=== PATIENT | female | born 2000 | race Caucasian/White ===

== ENCOUNTER → 2021-03-18 | Emergency (ER) | payer MEDICAID ==
[~2021-03-18] VITALS: Ht 162.5 cm; Wt 59.0 kg
[~2021-03-18] MED LIST: PENICILLIN VK500 MG PO
== END ==
LOC: ED 18:43
DX: K02.9 Dental caries, unspecified (principal); K04.7 Periapical abscess without sinus; K08.89 Other specified disorders of teeth and supporting structures

== ENCOUNTER 2021-04-03 21:44 | Emergency (ER) | payer MEDICAID ==
[~2021-04-03] VITALS: Ht 162.5 cm; Wt 59.0 kg
[2021-04-03 22:37] LABS: BASO % 0.3 % (0.0-1.0); EOS % 0.3 % (1.0-4.0); HEMATOCRIT 36.7 % (37.0-47.0); LYMPH # 0.7 10*3/uL (1.3-4.4); LYMPH % 10.6 % (27.0-41.0); MEAN CELL VOLUME 76.1 fl (81.0-99.0); MEAN CORPUSCULAR HGB 23.2 pg (27.0-31.0); MEAN CORPUSCULAR HGB CONC 30.5 g/dl (33.0-37.0); MONO # 0.2 10*3/uL (0.1-1.0); MONO % 3.9 % (3.0-9.0); NEUT # 5.2 10*3/uL (2.3-7.9); NEUT % 84.7 % (47.0-73.0); PLATELET COUNT AUTOMATED 307 10*3/uL (130-400); RED BLOOD COUNT 4.82 10*6/uL (4.10-5.10); RED CELL DISTRI WIDTH 15.1 % (0-14.5); WHITE BLOOD COUNT 6.2 10*3/uL (4.8-10.8)
[2021-04-03 22:46] LABS: BILIRUBIN Negative (Negative); BLOOD Negative (Negative); CLARITY Clear (Clear); COLOR Yellow (Yellow); GLUCOSE Negative (Negative); KETONE Trace (Negative); LEUKO ESTERASE Negative (Negative); NITRITE Negative (Negative); PH 5.5 (4.5-8.0); SPECIFIC GRAVITY 1.025 (1.001-1.030)
[2021-04-03 22:55] LABS: ALBUMIN 3.3 gm/dl (3.1-4.5); ALKALINE PHOSPHATASE 90 U/L (45-117); BUN 10 mg/dl (7-24); CHLORIDE 107 mmol/L (98-107); CREATININE 0.73 mg/dL (0.55-1.02); LIPASE 132 U/L (73-393); POTASSIUM 3.5 mmol/L (3.5-5.1); SGOT/AST 16 IU/L (3-35); SGPT/ALT 15 U/L (12-78); SODIUM 137 mmol/L (136-145); TOTAL PROTEIN 7.9 gm/dL (6.4-8.2)
[2021-04-03 23:11] LABS: BACTERIA TRACE; RBC 0-2 rbc/hpf (0-2); WBC 0-2 wbc/hpf (0-5)
[2021-04-03] MEDS ORDERED: ZOFRAN4 MG SL (23:25)
== END 2021-04-03 23:45 | disposition home or self-care (01) ==
LOC: ED 21:44
PROVIDERS: Nurse Practitioner
DX: K81.9 Cholecystitis, unspecified (principal); R11.10 Vomiting, unspecified; E83.51 Hypocalcemia

== ENCOUNTER 2021-04-07 01:45 | Emergency (ER) | payer MEDICAID ==
[~2021-04-07] VITALS: Wt 63.5 kg
[~2021-04-07 01:45] MED LIST changes: +ZOFRAN4 MG SL
== END 2021-04-07 04:03 | disposition home or self-care (01) ==
LOC: ED 01:45
DX: S86.911A Strain of unspecified muscle(s) and tendon(s) at lower leg level, right leg, initial encounter (principal); X58.XXXA Exposure to other specified factors, initial encounter; Y93.89 Activity, other specified; Y92.89 Other specified places as the place of occurrence of the external cause; Y99.8 Other external cause status

== ENCOUNTER 2021-10-01 18:23 | Emergency (ER) | payer MEDICAID ==
[~2021-10-01] VITALS: Wt 69.9 kg
[2021-10-01 19:22] LABS: BILIRUBIN Negative (Negative); BLOOD Negative (Negative); CLARITY Cloudy (Clear); COLOR Yellow (Yellow); GLUCOSE Negative (Negative); KETONE Negative (Negative); LEUKO ESTERASE 1+ (Negative); NITRITE Negative (Negative); SPECIFIC GRAVITY <= 1.005 (1.001-1.030); UROBILINOGEN 0.2 E.U./dl (0.0-1.0)
[2021-10-01 19:35] LABS: BACTERIA 2+
[2021-10-01] MEDS ORDERED: NAPROSYN500 MG PO (19:39)
== END 2021-10-01 19:42 | disposition home or self-care (01) ==
LOC: ED 18:23
PROVIDERS: Physician Assistant
DX: R07.81 Pleurodynia (principal)

== ENCOUNTER 2023-11-30 13:03 | Emergency (ER) | payer SELFPAY ==
[~2023-11-30] VITALS: Wt 68.0 kg
[~2023-11-30 13:03] MED LIST changes: +NAPROSYN500 MG PO
[2023-11-30 14:09] LABS: BASO % 0.5 % (0.0-1.0); EOS % 0.7 % (1.0-4.0); HEMATOCRIT 44.1 % (37.0-47.0); LYMPH # 1.3 10*3/uL (1.3-4.4); LYMPH % 30.2 % (27.0-41.0); MEAN CELL VOLUME 87.7 fl (81.0-99.0); MEAN CORPUSCULAR HGB 27.4 pg (27.0-31.0); MEAN CORPUSCULAR HGB CONC 31.3 g/dl (33.0-37.0); MEAN PLATELET VOLUME 9.8 fl (9.6-12.3); MONO # 0.5 10*3/uL (0.1-1.0); MONO % 12.3 % (3.0-9.0); NEUT # 2.4 10*3/uL (2.3-7.9); NEUT % 56.1 % (47.0-73.0); PLATELET COUNT AUTOMATED 260 10*3/uL (130-400); RED BLOOD COUNT 5.03 10*6/uL (4.10-5.10); RED CELL DISTRI WIDTH 14.6 % (0-14.5); WHITE BLOOD COUNT 4.3 10*3/uL (4.8-10.8)
[2023-11-30 14:11] LABS: BILIRUBIN Negative (Negative); BLOOD Negative (Negative); CLARITY Cloudy (Clear); COLOR Yellow (Yellow); GLUCOSE Negative (Negative); KETONE Negative (Negative); LEUKO ESTERASE 2+ (Negative); NITRITE Negative (Negative); PH 7.5 (4.5-8.0); SPECIFIC GRAVITY <= 1.005 (1.001-1.030); UROBILINOGEN 0.2 E.U./dl (0.0-1.0)
[2023-11-30 14:26] LABS: BACTERIA 1+; EPITHELIAL CELLS 16-20; RBC 0-2 rbc/hpf (0-2)
[2023-11-30 14:33] LABS: ALKALINE PHOSPHATASE 98 U/L (46-116); CHLORIDE 106 mmol/L (98-107); POTASSIUM 3.5 mmol/L (3.4-5.1); SGPT/ALT 9 U/L (5-49); TOTAL PROTEIN 7.5 gm/dL (6.0-8.0)
[2023-11-30 14:37] LABS: BUN < 5 mg/dl (9-23)
[2023-11-30] MEDS ORDERED: ONDANSETRON4 MG SL (15:36)
[2023-11-30] MEDS ORDERED: SEPTDS PO (15:36)
== END 2023-11-30 15:50 | disposition home or self-care (01) ==
LOC: ED 13:03
PROVIDERS: Physician Assistant Medical
DX: N39.0 Urinary tract infection, site not specified (principal); Z20.822 Contact with and (suspected) exposure to COVID-19; K52.9 Noninfective gastroenteritis and colitis, unspecified; R11.2 Nausea with vomiting, unspecified; F17.210 Nicotine dependence, cigarettes, uncomplicated

== ENCOUNTER 2024-01-21 11:29 | Emergency (ER) | payer SELFPAY ==
[~2024-01-21] VITALS: Ht 165.1 cm; Wt 68.0 kg
[~2024-01-21 11:29] MED LIST changes: +ONDANSETRON4 MG SL; +SEPTDS PO
[2024-01-21 12:04] LABS: BILIRUBIN Negative (Negative); BLOOD 3+ (Negative); CLARITY Turbid (Clear); COLOR Yellow (Yellow); GLUCOSE Negative (Negative); KETONE Negative (Negative); LEUKO ESTERASE 3+ (Negative); NITRITE Positive (Negative); UROBILINOGEN 0.2 E.U./dl (0.0-1.0)
[2024-01-21] MEDS ORDERED: AZITHROMYCIN 250 MG TAB PO ONE (12:05)
[2024-01-21 12:11] LABS: BASO # 0.1 10*3/uL (0.0-0.1); BASO % 0.6 % (0.0-1.0); EOS # 0.1 10*3/uL (0.0-0.4); HEMATOCRIT 41.3 % (37.0-47.0); LYMPH # 1.5 10*3/uL (1.3-4.4); LYMPH % 19.1 % (27.0-41.0); MEAN CELL VOLUME 90.2 fl (81.0-99.0); MEAN CORPUSCULAR HGB 29.5 pg (27.0-31.0); MEAN CORPUSCULAR HGB CONC 32.7 g/dl (33.0-37.0); MONO # 0.5 10*3/uL (0.1-1.0); MONO % 6.7 % (3.0-9.0); NEUT # 5.6 10*3/uL (2.3-7.9); NEUT % 72.3 % (47.0-73.0); PLATELET COUNT AUTOMATED 251 10*3/uL (130-400); RED BLOOD COUNT 4.58 10*6/uL (4.10-5.10); RED CELL DISTRI WIDTH 13.2 % (0-14.5); WHITE BLOOD COUNT 7.8 10*3/uL (4.8-10.8)
[2024-01-21 12:14] LABS: BACTERIA 4+; EPITHELIAL CELLS 21-30; RBC 41-50 rbc/hpf (0-2); WBC TNTC wbc/hpf (0-5)
[2024-01-21 12:32] LABS: ALKALINE PHOSPHATASE 86 U/L (46-116); CHLORIDE 105 mmol/L (98-107); SGPT/ALT 8 U/L (5-49); TOTAL PROTEIN 7.3 gm/dL (6.0-8.0)
[2024-01-21 12:35] LABS: BUN < 5 mg/dl (9-23)
[2024-01-21] MEDS ORDERED: Water, Sterile 10 ML VIAL ONE (12:40)
[2024-01-21] MEDS ORDERED: VIBRAMYCIN100 MG PO (13:22)
[2024-01-21] MEDS ORDERED: MIRALAX POWDER17 G1 PO (13:22)
== END 2024-01-21 13:29 | disposition home or self-care (01) ==
LOC: ED 11:29
PROVIDERS: Internal Medicine; Nurse Practitioner
DX: N39.0 Urinary tract infection, site not specified (principal); K59.00 Constipation, unspecified; N89.8 Other specified noninflammatory disorders of vagina

== ENCOUNTER 2024-02-15 21:09 | Emergency (ER) | payer SELFPAY ==
[~2024-02-15] VITALS: Ht 165.1 cm; Wt 68.0 kg
[~2024-02-15 21:09] MED LIST changes: +MIRALAX POWDER17 G1 PO; +VIBRAMYCIN100 MG PO
[2024-02-15 23:08] LABS: BASO # 0.1 10*3/uL (0.0-0.1); BASO % 0.8 % (0.0-1.0); EOS # 0.1 10*3/uL (0.0-0.4); EOS % 1.3 % (1.0-4.0); HEMATOCRIT 40.3 % (37.0-47.0); LYMPH # 2.3 10*3/uL (1.3-4.4); LYMPH % 38.9 % (27.0-41.0); MEAN CELL VOLUME 89.8 fl (81.0-99.0); MEAN CORPUSCULAR HGB 29.4 pg (27.0-31.0); MEAN CORPUSCULAR HGB CONC 32.8 g/dl (33.0-37.0); MEAN PLATELET VOLUME 10.1 fl (9.6-12.3); MONO # 0.4 10*3/uL (0.1-1.0); MONO % 6.7 % (3.0-9.0); NEUT # 3.1 10*3/uL (2.3-7.9); NEUT % 52.1 % (47.0-73.0); PLATELET COUNT AUTOMATED 267 10*3/uL (130-400); RED BLOOD COUNT 4.49 10*6/uL (4.10-5.10); RED CELL DISTRI WIDTH 12.8 % (0-14.5)
[2024-02-15 23:21] LABS: BILIRUBIN Negative (Negative); BLOOD 3+ (Negative); CLARITY Turbid (Clear); COLOR Orange (Yellow); GLUCOSE Negative (Negative); KETONE Negative (Negative); LEUKO ESTERASE 2+ (Negative); NITRITE Negative (Negative); PH 5.5 (4.5-8.0); SPECIFIC GRAVITY 1.015 (1.001-1.030); UROBILINOGEN 0.2 E.U./dl (0.0-1.0)
[2024-02-15 23:31] LABS: CHLORIDE 106 mmol/L (98-107); POTASSIUM 3.5 mmol/L (3.4-5.1)
[2024-02-15 23:43] LABS: EPITHELIAL CELLS 41-50
[2024-02-15 23:44] LABS: BUN < 5 mg/dl (9-23)
[2024-02-15 23:44] LABS: BACTERIA 1+; RBC 41-50 rbc/hpf (0-2); WBC 31-40 wbc/hpf (0-5)
== END 2024-02-16 00:55 | disposition home or self-care (01) ==
LOC: ED 21:09
PROVIDERS: Emergency Medicine; Nurse Practitioner
DX: O46.8X1 Other antepartum hemorrhage, first trimester (principal); Z3A.01 Less than 8 weeks gestation of pregnancy

== ENCOUNTER 2024-03-17 19:37 | Emergency (ER) | payer SELFPAY ==
[~2024-03-17] VITALS: Wt 68.0 kg
[2024-03-17 20:09] LABS: BASO # 0.1 10*3/uL (0.0-0.1); BASO % 0.8 % (0.0-1.0); EOS % 0.5 % (1.0-4.0); HEMATOCRIT 41.2 % (37.0-47.0); LYMPH # 0.4 10*3/uL (1.3-4.4); LYMPH % 7.3 % (27.0-41.0); MEAN CELL VOLUME 89.6 fl (81.0-99.0); MEAN CORPUSCULAR HGB 29.8 pg (27.0-31.0); MEAN CORPUSCULAR HGB CONC 33.3 g/dl (33.0-37.0); MEAN PLATELET VOLUME 9.9 fl (9.6-12.3); MONO # 0.3 10*3/uL (0.1-1.0); MONO % 5.1 % (3.0-9.0); NEUT # 5.2 10*3/uL (2.3-7.9); NEUT % 86.1 % (47.0-73.0); PLATELET COUNT AUTOMATED 242 10*3/uL (130-400); RED CELL DISTRI WIDTH 12.2 % (0-14.5); WHITE BLOOD COUNT 6.1 10*3/uL (4.8-10.8)
[2024-03-17 20:30] LABS: ALKALINE PHOSPHATASE 90 U/L (46-116); BUN 5 mg/dl (9-23); CHLORIDE 103 mmol/L (98-107); POTASSIUM 3.4 mmol/L (3.4-5.1); SGPT/ALT 9 U/L (5-49)
[2024-03-17 20:31] LABS: BETA-HCG, QUANT < 3.0 mIU/mL (3-10)
[2024-03-17 20:31] LABS: BILIRUBIN Negative (Negative); BLOOD Negative (Negative); CLARITY Clear (Clear); COLOR Yellow (Yellow); GLUCOSE Negative (Negative); KETONE Negative (Negative); LEUKO ESTERASE Trace (Negative); NITRITE Negative (Negative); SPECIFIC GRAVITY <= 1.005 (1.001-1.030); UROBILINOGEN 0.2 E.U./dl (0.0-1.0)
[2024-03-17 20:39] LABS: WBC 0-2 wbc/hpf (0-5); YEAST TRACE
[2024-03-17] MEDS ORDERED: Dexamethasone Sodium Phospha 20 MG/5 ML VIAL IM ONE (21:10)
[2024-03-17] MEDS ORDERED: Ketorolac Tromethamine 30 MG/ML VIAL IM ONE (21:10)
== END 2024-03-17 21:26 | disposition home or self-care (01) ==
LOC: ED 19:37
PROVIDERS: Internal Medicine; Internal Medicine Cardiovascular Disease
DX: B34.9 Viral infection, unspecified (principal); M54.50 Low back pain, unspecified; Z32.02 Encounter for pregnancy test, result negative

== ENCOUNTER 2024-06-19 10:38 | Emergency (ER) | payer OTHER ==
[~2024-06-19] VITALS: Ht 165.1 cm; Wt 68.0 kg
[2024-06-19] MEDS ORDERED: NAPROSYN500 MG PO (12:44)
== END 2024-06-19 12:58 | disposition home or self-care (01) ==
LOC: ED 10:38
DX: S60.221A Contusion of right hand, initial encounter (principal); W20.8XXA Other cause of strike by thrown, projected or falling object, initial encounter; Y93.89 Activity, other specified; Y92.89 Other specified places as the place of occurrence of the external cause; Y99.0 Civilian activity done for income or pay

== ENCOUNTER 2024-08-15 15:40 | Emergency (ER) | payer SELFPAY ==
[~2024-08-15] VITALS: Ht 152.4 cm; Wt 68.0 kg
[2024-08-15 16:29] LABS: BASO # 0.1 10*3/uL (0.0-0.1); BASO % 0.8 % (0.0-1.0); EOS % 0.5 % (1.0-4.0); HEMATOCRIT 42.8 % (37.0-47.0); MEAN CELL VOLUME 90.3 fl (81.0-99.0); MEAN CORPUSCULAR HGB 29.3 pg (27.0-31.0); MEAN CORPUSCULAR HGB CONC 32.5 g/dl (33.0-37.0); MEAN PLATELET VOLUME 9.6 fl (9.6-12.3); MONO # 0.4 10*3/uL (0.1-1.0); MONO % 5.4 % (3.0-9.0); NEUT # 4.6 10*3/uL (2.3-7.9); NEUT % 70.9 % (47.0-73.0); PLATELET COUNT AUTOMATED 338 10*3/uL (130-400); RED BLOOD COUNT 4.74 10*6/uL (4.10-5.10); RED CELL DISTRI WIDTH 12.4 % (0-14.5); WHITE BLOOD COUNT 6.5 10*3/uL (4.8-10.8)
[2024-08-15 16:48] LABS: CHLORIDE 107 mmol/L (98-107); POTASSIUM 3.7 mmol/L (3.4-5.1)
[2024-08-15 17:08] LABS: BUN < 5 mg/dl (9-23)
[2024-08-15 17:17] LABS: URINE AMPHETAMINES Negative (1000ng/ml); URINE BARBITURATES Negative (200ng/ml); URINE BENZODIAZEPINES Negative (200ng/ml); URINE CANNABINOIDS (THC) Positive (50ng/ml); URINE COCAINE Negative (300ng/ml); URINE METHADONE Negative (300ng/ml); URINE OPIATES Negative (300ng/ml); URINE PHENCYCLIDINE Negative (25ng/ml)
[2024-08-15 17:20] LABS: BILIRUBIN Negative (Negative); BLOOD Negative (Negative); CLARITY Cloudy (Clear); COLOR Yellow (Yellow); GLUCOSE Negative (Negative); KETONE Trace (Negative); LEUKO ESTERASE 2+ (Negative); NITRITE Negative (Negative)
[2024-08-15 17:47] LABS: BACTERIA 1+
== END 2024-08-15 18:19 | disposition home or self-care (01) ==
LOC: ED 15:40
PROVIDERS: Physician Assistant Medical
DX: F12.929 Cannabis use, unspecified with intoxication, unspecified (principal); R07.89 Other chest pain; R55 Syncope and collapse; R53.83 Other fatigue

== ENCOUNTER 2024-10-20 16:35 | Emergency (ER) | payer SELFPAY ==
[~2024-10-20] VITALS: Ht 165.1 cm; Wt 70.3 kg
== END 2024-10-20 17:51 | disposition home or self-care (01) ==
LOC: ED 16:35
DX: O26.891 Other specified pregnancy related conditions, first trimester (principal); R10.2 Pelvic and perineal pain; Z3A.01 Less than 8 weeks gestation of pregnancy

== ENCOUNTER 2025-03-05 18:27 | Emergency (ER) | payer SELFPAY ==
[~2025-03-05] VITALS: Ht 165.1 cm; Wt 68.0 kg
[2025-03-05 19:59] LABS: BILIRUBIN Negative (Negative); BLOOD Negative (Negative); CLARITY Cloudy (Clear); COLOR Yellow (Yellow); GLUCOSE Negative (Negative); KETONE Negative (Negative); LEUKO ESTERASE 2+ (Negative); NITRITE Negative (Negative); PH 5.5 (4.5-8.0); UROBILINOGEN 0.2 E.U./dl (0.0-1.0)
[2025-03-05 20:16] LABS: BACTERIA 2+; EPITHELIAL CELLS 21-30; RBC 0-2 rbc/hpf (0-2)
[2025-03-05] MEDS ORDERED: Amoxicillin/Clavulanate Pota 875 MG TAB PO ONE (20:35)
[2025-03-05] MEDS ORDERED: AMOX-CLAV 875-1 EACH PO (21:03)
== END 2025-03-05 21:20 | disposition home or self-care (01) ==
LOC: ED 18:27
PROVIDERS: Internal Medicine
DX: O23.41 Unspecified infection of urinary tract in pregnancy, first trimester (principal); N39.0 Urinary tract infection, site not specified; Z3A.00 Weeks of gestation of pregnancy not specified